=== PATIENT | male | born 2005 | race Caucasian/White ===

== ENCOUNTER 2024-12-01 06:18 | Day surgery (SDC) | payer BC, SELFPAY ==
[2024-12-01] VITALS (7 sets, daily range): BP systolic 123–147; BP diastolic 77–91; BMI 23.4
[2024-12-01] MEDS: NORMOSOL-R/PLASMALYTE-A 1000 IV ×2 (14:53→18:38)
[2024-12-01] MEDS: MOTRIN 600 MG PO (18:37)
== END 2024-12-01 19:07 | disposition home or self-care (01) ==
LOC: SDS 06:18
PROVIDERS: ATTENDING PHYSICIAN Orthopaedic Surgery
DX: S42.021A Displaced fracture of shaft of right clavicle, initial encounter for closed fracture (principal); V86.55XA Driver of 3- or 4- wheeled all-terrain vehicle (ATV) injured in nontraffic accident, initial encounter
CPT/HCPCS: 23515; 73000; 76000; C1713